=== PATIENT | male | born 1960 | race American Indian/Alaskan Native ===

== ENCOUNTER 2018-06-18 15:20 | Emergency (ER) | payer MEDICAID ==
--- NOTE | 2018-06-18 15:43 | Emergency Department Report ---
Chief Complaint: Recheck/Abnormal Lab/Rx Stated Complaint: REFILL MEDICATION Time Seen by Provider: 06/18/18 15:37 - HPI History of Present Illness: 57 y o male with PMH of Blood clots/ DVT and takes lovenox once a week states hes out of his medication Denies f/cp/sob/difficulty walking - ROS Review of Systems: As noted in HPI - Exam Physical Exam: AAO x3, speaking in clear sentences EXTREMITY: no swelling, non tender MSE screening note: Focused history and physical exam performed. Due to findings the following was ordered: ED Disposition for MSE Clinical Impression: Medication refill Disposition: DC TO HOME OR SELFCARE Is pt being admited?: No Does the pt Need Aspirin: No Condition: Stable Instructions: Enoxaparin (Injection) Additional Instructions: f/u with pcp take meds as prescribed Prescriptions: Enoxaparin [Lovenox] 30 mg SQ QWEEK #1 pack Referrals: JAMEEL HAMMONDS MD [Referring] - 3-5 Days [facility] [Outside] - 3-[address] [facility] [Outside] - 3-5 Days Forms: Work/School Release Form(ED) Time of Disposition: 15:43
== END 2018-06-18 16:36 | disposition home or self-care (01) ==
LOC: ED 15:20
DX: Z76.0 Encounter for issue of repeat prescription (principal)
CPT/HCPCS: 99282

== ENCOUNTER 2018-06-23 11:51 | Emergency (ER) | payer MEDICAID, OTHER ==
--- NOTE | 2018-06-23 12:00 | Emergency Department Report ---
ED Recheck HPI - General Chief Complaint: Medical Clearance Stated Complaint: MEDICATION REFILL Time Seen by Provider: 06/23/18 11:56 Source: patient Mode of arrival: Ambulatory Limitations: No Limitations - History of Present Illness Initial Comments: This is a 57-year-old male that presents to the ED for subQ syringe refill. Patient stated has all medications and just needs the synringe. Patient denies any complaints. Denies any headache, body aches, fever, chills, headache, nausea or vomiting. Denies any chest pain or shortness of breathe. Denies any allergies. Stated just moved here. MD Complaint: medication refill request Returns Today for: request for prescription Symptoms Since Prior Visit: no new symptoms Associated Symptoms: none. denies: fever, chills, chest pain, shortness of breath, rash, malaise, nasuea, abdominal pain - Related Data Previous Rx's Medication Instructions Recorded Last Taken Type Enoxaparin [Lovenox] 30 mg SQ QWEEK #1 pack 06/18/18 Unknown Rx Syringe & Needle,Insulin,1 ml 1 each MC BID 60 Days #1 box 06/23/18 Unknown Rx [Ultra Comfort] Allergies Allergy/AdvReac Type Severity Reaction Status Date / Time No Known Allergies Allergy Verified 06/18/18 15:36 ED Review of Systems ROS: Stated complaint: MEDICATION REFILL Other details as noted in HPI Constitutional: denies: chills, fever Eyes: denies: eye pain, eye discharge, vision change ENT: denies: ear pain, throat pain Respiratory: denies: cough, shortness of breath, wheezing Cardiovascular: denies: chest pain, palpitations Endocrine: no symptoms reported Gastrointestinal: denies: abdominal pain, nausea, diarrhea Genitourinary: denies: urgency, dysuria Musculoskeletal: denies: back pain, joint swelling, arthralgia Skin: denies: rash, lesions Neurological: denies: headache, weakness, paresthesias Psychiatric: denies: anxiety, depression Hematological/Lymphatic: denies: easy bleeding, easy bruising ED Past Medical Hx - Past Medical History Additional medical history: DVT - Surgical History Hx Cholecystectomy: Yes - Social History Smoking Status: Never Smoker - Medications Home Medications: Home Medications Medication Instructions Recorded Confirmed Last Taken Type Enoxaparin [Lovenox] 30 mg SQ QWEEK #1 pack 06/18/18 Unknown Rx Syringe & Needle,Insulin,1 ml 1 each MC BID 60 Days #1 box 06/23/18 Unknown Rx [Ultra Comfort] ED Physical Exam - General Limitations: No Limitations General appearance: alert, in no apparent distress - Head Head exam: Present: atraumatic, normocephalic - Neck Neck exam: Present: normal inspection, full ROM - Extremities Exam Extremities exam: Present: normal inspection, full ROM - Back Exam Back exam: Present: normal inspection, full ROM - Neurological Exam Neurological exam: Present: alert, oriented X3 - Psychiatric Psychiatric exam: Present: normal affect, normal mood - Skin Skin exam: Present: warm, dry, intact, normal color. Absent: rash ED Course - Reevaluation(s) Reevaluation #1: 06/23/18 12:02 Patient is speaking in full sentences with no signs of distress noted. Critical care attestation.: If time is entered above; I have spent that time in minutes in the direct care of this critically ill patient, excluding procedure time. ED Disposition Clinical Impression: Medication refill Disposition: DC-01 TO HOME OR SELFCARE Is pt being admited?: No Does the pt Need Aspirin: No Condition: Stable Additional Instructions: Follow-up with primary care doctor in 3-5 days. Prescriptions: Syringe & Needle,Insulin,1 ml [Ultra Comfort] 1 each MC BID 60 Days #1 box Referrals: PRIMARY CARE, [Referring] - 3-5 Days NAFISA POWERS MD [Staff Physician] - 3-5 Days [facility] [Outside] - 3-5 Days [facility] [Outside] - 3-5 Days
== END 2018-06-23 12:16 | disposition home or self-care (01) ==
LOC: ED 11:51
CPT/HCPCS: 99282

== ENCOUNTER 2018-06-25 10:23 | Emergency (ER) | payer MEDICAID ==
--- NOTE | 2018-06-25 10:36 | Emergency Department Report ---
ED Recheck HPI - General Stated Complaint: MED REFILL Time Seen by Provider: 06/25/18 10:33 Source: patient Mode of arrival: Ambulatory Limitations: No Limitations - History of Present Illness Initial Comments: Patient is a pleasant 57-year-old male who was seen here last night and sent home with the wrong prescription. He returns today to get his Lovenox injection prescription written properly. Pt was given rx for lovenox liq and syringes. He needs prefilled syringes. Complaint: medication refill request - Related Data Previous Rx's Medication Instructions Recorded Last Taken Type Enoxaparin [Lovenox] 60 mg SQ Q12HR #60 syringe 06/25/18 Unknown Rx Allergies Allergy/AdvReac Type Severity Reaction Status Date / Time No Known Allergies Allergy Verified 06/25/18 10:24 ED Review of Systems ROS: Stated complaint: MED REFILL Other details as noted in HPI Comment: no complaints ED Past Medical Hx - Past Medical History Additional medical history: DVT - Surgical History Hx Cholecystectomy: Yes - Social History Smoking Status: Never Smoker Substance Use Type: None - Medications Home Medications: Home Medications Medication Instructions Recorded Confirmed Last Taken Type Enoxaparin [Lovenox] 60 mg SQ Q12HR #60 syringe 06/25/18 Unknown Rx ED Physical Exam - General Limitations: No Limitations General appearance: alert - Head Head exam: Present: atraumatic - Eye Eye exam: Present: normal appearance - Respiratory Respiratory exam: Present: normal lung sounds bilaterally - GI/Abdominal GI/Abdominal exam: Present: soft - Extremities Exam Extremities exam: Present: normal inspection - Back Exam Back exam: Present: normal inspection - Neurological Exam Neurological exam: Present: alert, oriented X3, CN II-XII intact, normal gait ED Course Vital Signs 06/25/18 10:26 Temperature 97.5 F L Pulse Rate 76 Respiratory 16 Rate Blood Pressure 120/78 O2 Sat by Pulse 100 Oximetry ED Recheck MDM - Differential Diagnosis Prescription Refill(s) Critical care attestation.: If time is entered above; I have spent that time in minutes in the direct care of this critically ill patient, excluding procedure time. ED Disposition Clinical Impression: Medication refill Disposition: DC-01 TO HOME OR SELFCARE Is pt being admited?: No Does the pt Need Aspirin: No Condition: Stable Additional Instructions: follow up as instructed last night Prescriptions: Enoxaparin [Lovenox] 60 mg SQ Q12HR #60 syringe Time of Disposition: 10:36
== END 2018-06-25 11:03 | disposition home or self-care (01) ==
LOC: ED 10:23
CPT/HCPCS: 99282

== ENCOUNTER 2018-07-25 16:49 | Emergency (ER) | payer MEDICAID ==
--- NOTE | 2018-07-25 17:12 | Emergency Department Report ---
Suture/Staple Removal - HPI Chief Complaint: Laceration/Recheck/Suture Stated Complaint: SUTURE REMOVAL Time Seen by Provider: 07/25/18 17:06 When Sutures or Raya Placed: 11-14 Days Ago ED Review of Systems ROS: Stated complaint: SUTURE REMOVAL Other details as noted in HPI Comment: All other systems reviewed and negative Constitutional: denies: chills Eyes: denies: eye pain ENT: denies: ear pain Respiratory: denies: cough Cardiovascular: denies: dyspnea on exertion Endocrine: denies: intolerance to cold Gastrointestinal: denies: nausea Genitourinary: denies: dysuria Skin: lesions Neurological: denies: headache Psychiatric: denies: depression Hematological/Lymphatic: denies: easy bleeding ED Past Medical Hx - Past Medical History Previous Medical History?: Yes Additional medical history: DVT - Surgical History Past Surgical History?: Yes Hx Cholecystectomy: Yes - Family History Family history: no significant - Social History Smoking Status: Never Smoker Substance Use Type: Prescribed - Medications Home Medications: Home Medications Medication Instructions Recorded Confirmed Last Taken Type Enoxaparin [Lovenox] 60 mg SQ Q12HR #60 syringe 06/25/18 Unknown Rx Suture Removal Exam - Exam General: Vital signs noted. No distress. Alert and acting appropriately. Wound: No Pathologic Erythema, No Tenderness, No Drainage, No Pus, No Wound Dehiscence Other Systems: All other systems reviewed and are unremarkable. ED Course Vital Signs 07/25/18 16:51 Temperature 98 F Pulse Rate 79 Respiratory 18 Rate Blood Pressure 97/65 O2 Sat by Pulse 99 Oximetry ED Recheck MDM - Differential Diagnosis Suture/Staple Removal - Medical Decision Making SIMPLE SUTURE REMOVAL NO S/S INFECTION Critical care attestation.: If time is entered above; I have spent that time in minutes in the direct care of this critically ill patient, excluding procedure time. ED Disposition Clinical Impression: Visit for suture removal Disposition: DC- TO HOME OR SELFCARE Is pt being admited?: No Does the pt Need Aspirin: No Condition: Stable Time of Disposition: 17:
== END 2018-07-25 17:18 | disposition home or self-care (01) ==
LOC: ED 16:49